=== PATIENT | female | born 1960 ===

== ENCOUNTER 2018-06-17 14:02 | Emergency (ER) | payer MEDICAID ==
[2018-06-17 14:21] VITALS: O2SAT 98
[2018-06-17 14:43] LABS: BASO # 0.1 K/uL (0.0-0.2); EOS # 0.3 K/uL (0.0-0.7); EOS % 5.8 % (0.0-4.0); HEMOGLOBIN 13.3 g/dL (11.0-16.0); LYMPH # 2.1 K/uL (1.0-4.3); LYMPH % 40.3 % (20.0-40.0); MEAN CELL VOLUME 89.8 fL (81.0-99.0); MEAN CORPUSCULAR HEMOGLOBIN 29.8 pg (27.0-31.0); MEAN CORPUSCULAR HGB CONC 33.2 g/dL (33.0-37.0); MEAN PLATELET VOLUME 9.9 fL (7.2-11.7); MONO # 0.5 K/uL (0.0-0.8); MONO % 9.9 % (0.0-10.0); NEUT # 2.2 K/uL (1.8-7.0); RBC 4.45 Mil/uL (3.80-5.20); RED CELL DISTRIBUTION WIDTH 12.8 % (11.5-14.5); WHITE BLOOD COUNT 5.2 K/uL (4.8-10.8)
[2018-06-17 14:51] LABS: PROTHROMBIN TIME 11.3 SECONDS (9.7-12.2)
[2018-06-17 14:55] LABS: ALB/GLOB RATIO 1.6 (1.0-2.1); ALBUMIN 4.6 g/dL (3.5-5.0); ALT/SGPT 29 U/L (9-52); AST/SGOT 24 U/L (14-36); BLOOD UREA NITROGEN 13 mg/dL (7-17); CALCIUM 9.2 mg/dl (8.6-10.4); GFR NON-AFRICAN AMERICAN > 60
[2018-06-17] MEDS ORDERED: Aspirin 325 mg EC Tablets PO STA (15:24)
[2018-06-17 16:00] LABS: SQUAMOUS EPITHIAL 1 /hpf (0-5); URINE BILIRUBIN NEGATIVE (NEGATIVE); URINE BLOOD 1+ (NEGATIVE); URINE CLARITY Clear (Clear); URINE COLOR Straw (YELLOW); URINE GLUCOSE (UA) NORMAL (Normal); URINE LEUKOCYTE ESTERASE NEG Leu/uL (Negative); URINE PROTEIN NEGATIVE (NEGATIVE); URINE UROBILINOGEN NORMAL mg/dL (0.2-1.0)
--- NOTE | 2018-06-17 17:55 | C.PDOC ---
Time Seen by Provider: 06/17/18 15:03 Chief Complaint (Nursing): Chest Pain Past Medical History Vital Signs: Last Vital Signs Temp 98.0 F 06/17/18 14:20 Pulse 46 L 06/17/18 16:54 Resp 21 06/17/18 16:54 BP 136/49 L 06/17/18 16:54 Pulse Ox 98 06/17/18 16:54 - Medical History PMH: CAD, Depression, HTN Surgical History: CABG, Coronary Stent Family History: States: Unknown Family Hx - Social History Hx Tobacco Use: No Hx Alcohol Use: No Hx Substance Use: No - Immunization History Hx Tetanus Toxoid Vaccination: No Hx Influenza Vaccination: Yes Hx Pneumococcal Vaccination: No ED Course And Treatment - Laboratory Results Result Diagrams: 06/17/18 14:40 06/17/18 14:40 Lab Interpretation: Normal (d-dimer, trop/bnp neg. 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 Ansari- [facility] 12/24 Defer inpt eval as LOW susp of cardiac. f/u with her [employer] this week planned. Disposition Doctor Will See Patient In The: Office Counseled Patient/Family Regarding: Studies Performed, Diagnosis - Disposition Disposition: HOME/ ROUTINE Disposition Time: 17:55 Condition: GOOD - Clinical Impression Clinical Impression: Chest discomfort, Sinus bradycardia by electrocardiogram
--- NOTE | 2018-06-17 18:41 | RAD ---
Date of service: 06/17/2018 HISTORY: SOB COMPARISON: Comparison chest 10/09/2015 FINDINGS: LUNGS: The central pulmonary vasculature is slightly increased; rule out mild chronic compensated pulmonary venous congestive changes. Suspect minimal bibasilar atelectasis left greater than right PLEURA: No significant pleural effusion identified, no pneumothorax apparent. CARDIOVASCULAR: Mild moderate aortic atherosclerotic calcification present. Sternotomy wires. environmental permitting specialist device seen overlying the left parasagittal anterior chest wall.. No pulmonary vascular congestion. OSSEOUS STRUCTURES: No significant abnormalities. VISUALIZED UPPER ABDOMEN: Normal. OTHER FINDINGS: None. IMPRESSION: The central pulmonary vasculature is slightly increased; rule out mild chronic compensated pulmonary venous congestive changes. Suspect minimal bibasilar atelectasis left greater than right
[2018-06-17 18:55] VITALS: BP 111/73; PULSE 55; RESP 18; TEMP 98
--- NOTE | 2018-06-18 21:56 | CARD ---
APPROVED REPORT Date of service: 06/17/2018 EKG Measurement Heart [id number] VT [id number] [id number] <Conclusion> Marked sinus bradycardia Nonspecific T wave abnormality Abnormal ECG
== END 2018-06-17 18:55 | disposition home or self-care (01) ==
LOC: C.ER 14:02
DX: R00.1 Bradycardia, unspecified (principal); R07.89 Other chest pain
CPT/HCPCS: 36415; 71045; 80053; 81001; 83735; 83880; 84100; 84484; 85025; 85378; 85610; 85730; 93005; 96374; 99285; J1885